=== PATIENT | male | born 1965 | race Caucasian/White ===

== ENCOUNTER 2018-09-15 13:49 | Emergency (ER) ==
[~2018-09-15] VITALS: Ht 152.4 cm; Wt 49.9 kg
[2018-09-15 14:26] VITALS: BP 127/87
== END 2018-09-15 14:47 | disposition home or self-care (01) ==
LOC: ER 14:01
DX: Z76.0 Encounter for issue of repeat prescription (principal); E06.3 Autoimmune thyroiditis